=== PATIENT | female | born 1995 ===

== ENCOUNTER 2021-02-09 22:38 | Emergency (ER) | payer OTHER ==
[~2021-02-09] VITALS: Ht 170.2 cm; Wt 54.4 kg
[2021-02-10] MEDS ORDERED: BACTRIM DS TAB1 EACH PO (04:30)
== END 2021-02-10 05:42 | disposition home or self-care (01) ==
LOC: ER 22:38
DX: N20.0 Calculus of kidney (principal); M54.89 Other dorsalgia